=== PATIENT | male | born 1955 | race Caucasian/White ===

== ENCOUNTER → 2018-12-28 | Outpatient (CLI) | payer SELFPAY ==
--- NOTE | 2018-12-28 12:37 | XR ---
EXAMINATION TYPE: XR shoulder complete RT DATE OF EXAM: 12/28/2018 COMPARISON: NONE HISTORY: Pain TECHNIQUE: Three views are submitted. FINDINGS: The osseous structures are intact. There is no acute fracture or dislocation. The AC joint is maint ained. Postsurgical change involving the right shoulder. IMPRESSION: 1. No acute process.
== END ==
LOC: RADXRMAIN 12:14
PROVIDERS: ATTEND Physician Assistant
DX: M25.511 Pain in right shoulder (principal)

== ENCOUNTER 2020-10-24 16:51 | Emergency (ER) | payer OTHER ==
--- NOTE | 2020-10-24 18:42 | XR ---
EXAMINATION TYPE: XR chest 2V DATE OF EXAM: 10/24/2020 COMPARISON: NONE HISTORY: Cough TECHNIQUE: 2 views FINDINGS: Heart and mediastinum are normal. There is some patchy airspace infiltrate in the right mid lung field. Left lung is clear. There is no pleural effusion. There are no hilar masses. IMPRESSION: There is some right side pneumonia which appears new compared to old exam. Normal heart.
--- NOTE | 2020-10-24 20:30 | ED ---
Fever HPI - General Chief Complaint: Fever Stated Complaint: weak/cough/nausea/vomiting/fever Time Seen by Provider: 10/24/20 20:03 Source: patient, RN notes reviewed Mode of arrival: ambulatory Limitations: no limitations - History of Present Illness Initial Comments: 65-year-old white male patient, alert and oriented 4, presents to the emergency room after receiving a positive Covid test on October 20, patient states symptoms started on October 18 where he had sick contacts with the basketball team. Patient complains of cough, congestion, chills, nausea and vomiting and a decreased appetite. Patient denies diarrhea. Patient denies any other medical history. Has surgical history of appendectomy. Patient has no known ALLERGIES. Oxygen saturation 97% on room air, temperature 100.3. MD Complaint: fever, weakness -: days(s) (6) Temperature Source: oral Context: sick contacts (basketball team) Associated Symptoms: chills, cough, shortness of breath, nausea, vomiting, night sweats (decreased appetite) Treatments Prior to Arrival: none - Related Data Previous Rx's Medication Instructions Recorded Azithromycin [Zithromax Z-pack (6 250 mg PO DIRECTED 4 Days #4 tab 10/24/20 tabs)] Allergies Allergy/AdvReac Type Severity Reaction Status Date / Time No Known Allergies Allergy Verified 10/24/20 18:04 Review of Systems ROS Statement: Those systems with pertinent positive or pertinent negative responses have been documented in the HPI. ROS Other: All systems not noted in ROS Statement are negative. Past Medical History Additional Past Medical History / Comment(s): covid 10/14 History of Any Multi-Drug Resistant Organisms: None Reported Past Surgical History: Appendectomy, Orthopedic Surgery Additional Past Surgical History / Comment(s): jamin shoulder,rt knee Past Psychological History: No Psychological Hx Reported Smoking Status: Never smoker Past Alcohol Use History: Rare Past Drug Use History: None Reported General Exam Limitations: no limitations General appearance: alert, in no apparent distress Head exam: Present: atraumatic, normocephalic, normal inspection Eye exam: Present: normal appearance, PERRL, EOMI. Absent: scleral icterus, conjunctival injection, periorbital swelling ENT exam: Present: normal exam, mucous membranes moist Neck exam: Present: normal inspection. Absent: tenderness, meningismus, lymphadenopathy Respiratory exam: Present: normal lung sounds bilaterally. Absent: respiratory distress, wheezes, rales, rhonchi, stridor, chest wall tenderness, decreased breath sounds Cardiovascular Exam: Present: regular rate, normal rhythm, normal heart sounds. Absent: systolic murmur, diastolic murmur, rubs, gallop, clicks GI/Abdominal exam: Present: soft, normal bowel sounds. Absent: distended, tenderness, guarding, rebound, rigid Extremities exam: Present: normal inspection, full ROM, normal capillary refill. Absent: tenderness, pedal edema, joint swelling, calf tenderness Back exam: Present: normal inspection Neurological exam: Present: alert, oriented X3, CN II-XII intact Psychiatric exam: Present: normal affect, normal mood Skin exam: Present: warm, dry, intact, normal color. Absent: rash Course Vital Signs 10/24/20 18:00 Temperature 100.3 F H Pulse Rate 69 Respiratory 22 Rate Blood Pressure 124/80 O2 Sat by Pulse 97 Oximetry Medical Decision Making - Medical Decision Making Temperature 100.3, oxygen level 97% on room air, patient's symptoms started 6 days ago, chest x-ray shows right middle lobe pneumonia. Patient does not meet criteria for monoclonal antibodies. Will discharge patient home on a Z-Wale instructions to return if worsening symptoms or unable to keep fluids down. Case discussed with Dr. Chavez who is in agreement with this plan Disposition Clinical Impression: Pneumonia Disposition: HOME SELF-CARE Condition: Fair Instructions (If sedation given, give patient instructions): Viral Pneumonia (ED), Bacterial Pneumonia (ED) Additional Instructions: Take medication as prescribed, increase fluid intake, Tylenol or Motrin for fevers. Follow-up with the primary care doctor in 1 week. Come back to the emergency room if unable to keep fluids down or worsening shortness of breath or chest pain. Prescriptions: Azithromycin [Zithromax Z-pack (6 tabs)] 250 mg PO DIRECTED 4 Days #4 tab Is patient prescribed a controlled substance at d/c from ED?: No Referrals: Kam Smith DO [Primary Care Provider] - 1-2 days Time of Disposition: 20:43
[2020-10-24] MEDS ORDERED: METOCLOPRAMIDE 5 MG/ML 2 ML VIAL IM STA (20:37)
[2020-10-24] MEDS ORDERED: AZITHROMYCIN 250 MG TAB PO STA (20:37)
[2020-10-24 21:57] VITALS: BP 134/76; PULSE 20; RESP 87; TEMP 98.7
== END 2020-10-24 21:54 | disposition home or self-care (01) ==
LOC: EC 16:51
DX: U07.1 COVID-19 (principal); J12.82 Pneumonia due to coronavirus disease 2019
CPT/HCPCS: 71046; 93005; 96372; 99284

== ENCOUNTER → 2023-06-04 | Outpatient (CLI) | payer MEDICARE, BC ==
[2023-06-04 12:43] LABS: Prothrombin Time 10.9 sec (10.0-12.5)
== END | disposition home or self-care (01) ==
LOC: LABWHC1 11:12
PROVIDERS: ATTEND Internal Medicine Cardiovascular Disease
DX: I48.91 Unspecified atrial fibrillation (principal)
CPT/HCPCS: 36415; 85610

== ENCOUNTER → 2023-06-29 | Outpatient (CLI) | payer MEDICARE, BC ==
[2023-06-29 15:11] LABS: INR 2.5 (<1.2); Prothrombin Time 24.3 sec (10.0-12.5)
== END | disposition home or self-care (01) ==
LOC: LABWHC1 13:07
PROVIDERS: ATTEND Internal Medicine Cardiovascular Disease
DX: I48.91 Unspecified atrial fibrillation (principal)
CPT/HCPCS: 36415; 85610

== ENCOUNTER → 2023-07-15 | Outpatient (CLI) | payer MEDICARE, BC ==
[2023-07-15 13:49] LABS: INR 3.6 (<1.2); Prothrombin Time 35.7 sec (10.0-12.5)
== END | disposition home or self-care (01) ==
LOC: LABWHC1 13:10
PROVIDERS: ATTEND Internal Medicine Cardiovascular Disease
DX: I48.91 Unspecified atrial fibrillation (principal)
CPT/HCPCS: 36415; 85610

== ENCOUNTER 2024-01-16 16:28 | Emergency (ER) | payer MEDICARE, BC ==
--- NOTE | 2024-01-16 16:41 | ED ---
General Adult HPI - General Stated complaint: dizziness Time Seen by Provider: 01/16/24 16:35 Source: RN notes reviewed - History of Present Illness Initial comments: 69-year-old male presenting to the ED with a chief complaint of dizziness. Per patient family and family, was at the pool when he sneezed. Shortly after sneezing started to experience nausea vomiting and dizziness which is described as the room spinning. No chest pain or shortness of breath. Family, at onset no slurring of words. No confusion. Has been acting his normal self. No fever or chills. No other complaints at this time. - Related Data Previous Rx's Medication Instructions Recorded Meclizine [Antivert] 25 mg PO TID PRN #15 tab 01/16/24 Ondansetron Odt [Zofran Odt] 4 mg PO Q8HR PRN #10 tab 01/16/24 Allergies Allergy/AdvReac Type Severity Reaction Status Date / Time No Known Allergies Allergy Verified 01/16/24 16:42 Review of Systems ROS Statement: Those systems with pertinent positive or pertinent negative responses have been documented in the HPI. ROS Other: All systems not noted in ROS Statement are negative. Past Medical History Past Medical History: Atrial Fibrillation Additional Past Medical History / Comment(s): covid 10/14. CARPAL TUNNEL, LT TRIGGER FINGER RING FINGER. HX AFIB-TO HAVE ABLATION 06/01/23-DR. KIRAN AWARE History of Any Multi-Drug Resistant Organisms: None Reported Past Surgical History: Appendectomy, Orthopedic Surgery Additional Past Surgical History / Comment(s): jamin shoulder, rt knee, Past Anesthesia/Blood Transfusion Reactions: No Reported Reaction Smoking Status: Never smoker - Past Family History Mother Family Medical History: No Reported History General Exam - General Exam Comments Initial Comments: Visual Physical Exam Vital signs reviewed General: Well-appearing, nontoxic, no acute distress. Head: Normocephalic, atraumatic Eyes: PERRLA, EOMI ENT: Airway patent Chest: Nonlabored breathing Skin: No visual rash, normal skin tone Neuro: Alert and oriented 3 Musculoskeletal: No gross abnormalities General appearance: alert, in no apparent distress Eye exam: Present: normal appearance, PERRL, EOMI, other (Right beating nystagmus, no torsional nystagmus on cover/uncover. Corrective saccade on head impulse testing.) Neck exam: Present: normal inspection Respiratory exam: Present: normal lung sounds bilaterally Cardiovascular Exam: Present: regular rate GI/Abdominal exam: Present: soft, normal bowel sounds. Absent: distended, tenderness, guarding, rebound, rigid Extremities exam: Present: other (Strength and sensation equal intact bilateral upper lower extremities.) Neurological exam: Present: alert, oriented X3, CN II-XII intact ([id number], [id number], rapid alternating hand movements intact.) Skin exam: Present: warm, dry Course Vital Signs 01/16/24 16:35 Pulse Rate 65 Respiratory 18 Rate Blood Pressure 181/93 O2 Sat by Pulse 93 L Oximetry Medical Decision Making - Medical Decision Making Was pt. sent in by a medical professional or institution (, PA, FARM OPERATOR, urgent care, hospital, or intermediate...) When possible be specific @ -No Did you speak to anyone other than the patient for history (EMS, parent, family, police, friend...)? What history was obtained from this source @ -No Did you review nursing and triage notes (agree or disagree)? Why? @ -I reviewed and agree with nursing and triage notes Were old charts reviewed (outside hosp., previous admission, EMS record, old EKG, old radiological studies, urgent care reports/EKG's, intermediate records)? Report findings @ -No old charts were reviewed Differential Diagnosis (chest pain, altered mental status, abdominal pain women, abdominal pain men, vaginal bleeding, weakness, fever, dyspnea, syncope, headache, dizziness, GI bleed, back pain, seizure, CVA, palpatations, mental health, musculoskeletal)? @ -Differential Dizziness: Benign paroxysmal positional Vertigo, Menieres disease, otitis media, acoustic neuroma, vertebrobasilar insufficiency, cerebellar stroke, encephalitis, hypovolemic, arrhythmia, coronary artery syndrome, anemia, this is not meant to be an all-inclusive list EKG interpreted by me (3pts min.). @ -EKG interpreted me showing a sinus bradycardia at [address] or T wave changes. IA 161, QRS 129, QT/QTc 406/491. X-rays interpreted by me (1pt min.). @ -None done CT interpreted by me (1pt min.). @ -None done U/S interpreted by me (1pt. min.). @ -None done What testing was considered but not performed or refused? (CT, X-rays, U/S, labs)? Why? @ -Imaging of the brain was considered however at this time neurologic exam benign with peripheral findings. Additionally had significant improvement of symptoms following meclizine and Zofran. What meds were considered but not given or refused? Why? @ -None Did you discuss the management of the patient with other professionals (professionals i.e. DrAshwin, PA, FARM OPERATOR, lab, RT, psych nurse, social service director, fur nailer, teacher, command and control officer, case management director)? Give summary @ -No Was smoking cessation discussed for >3mins.? @ -No Was critical care preformed (if so, how long)? @ -No Were there social determinants of health that impacted care today? How? (Homelessness, low income, unemployed, alcoholism, drug addiction, transportation, low edu. Level, literacy, decrease access to med. care, long-term, rehab)? @ -No Was there de-escalation of care discussed even if they declined (Discuss DNR or withdrawal of care, Hospice)? DNR status @ -No What co-morbidities impacted this encounter? (DM, HTN, Smoking, COPD, CAD, Can cer, CVA, ARF, Chemo, Hep., AIDS, mental health diagnosis, sleep apnea, morbid obesity)? @ -None Was patient admitted / discharged? Hospital course, mention meds given and route, prescriptions, significant lab abnormalities, going to OR and other pertinent info. @ -Discharge 69-year-old male presenting to the ED with complaints of dizziness and nausea vomiting after sneezing. On exam, HINTs exam consistent with peripheral findings of vertigo. Laboratory studies reviewed. Labs including CBC CMP UA largely unremarkable. Patient provided meclizine and Antivert here with signif icant improvement of symptoms and at this time patient reports he would like to go home and would not like to have any additional testing. Discharged home in stable condition with prescription for meclizine and Zofran with referral to see ENT. Discussed tricked return precautions with patient and family who verbalized agreement. Undiagnosed new problem with uncertain prognosis? @ -No Drug Therapy requiring intensive monitoring for toxicity (Heparin, Nitro, Insulin, Cardizem)? @ -No Were any procedures done? @ -No Diagnosis/symptom? @ -Vertigo Acute, or Chronic, or Acute on Chronic? @ -Acute Uncomplicated (without systemic symptoms) or Complicated (systemic symptoms)? @ -Uncomplicated Side effects of treatment? @ -No Exacerbation, Progression, or Severe Exacerbation? @ -No Poses a threat to life or bodily function? How? (Chest pain, [place], [place], pneumonia, PE, COPD, DKA, ARF, appy, cholecystitis, CVA, Diverticulitis, Homicidal, Suicidal, threat to staff... and all critical care pts) @ -No - Lab Data Result diagrams: 01/16/24 16:42 01/16/24 16:42 Lab Results 01/16/24 01/16/24 01/16/24 Range/Units 16:42 16:42 16:42 WBC 8.7 (3.8-10.6) k/uL RBC 4.80 (4.30-5.90) m/uL Hgb 13.9 (13.0-17.5) gm/dL Hct 42.3 (39.0-53.0) % MCV 88.2 (80.0-100.0) fL MCH 29.0 (25.0-35.0) pg MCHC 32.9 (31.0-37.0) g/dL RDW 13.9 (11.5-15.5) % Plt Count 210 (150-450) k/uL MPV 9.2 Neutrophils % 47 % Lymphocytes % 38 % Monocytes % 8 % Eosinophils % 2 % Basophils % 1 % Neutrophils # 4.1 (1.3-7.7) k/uL Lymphocytes # 3.3 (1.0-4.8) k/uL Monocytes # 0.7 (0-1.0) k/uL Eosinophils # 0.2 (0-0.7) k/uL Basophils # 0.0 (0-0.2) k/uL Sodium 141 (137-145) mmol/L Potassium 4.0 (3.5-5.1) mmol/L Chloride 111 H (98-107) mmol/L Carbon Dioxide 20 L (22-30) mmol/L Anion Gap 10 mmol/L BUN 19 (9-20) mg/dL Creatinine 1.27 H (0.66-1.25) mg/dL Est GFR (CKD-EPI)AfAm 67 (>60 ml/min/1.73 sqM) Est GFR (CKD-EPI)NonAf 58 (>60 ml/min/1.73 sqM) Glucose 135 H (74-99) mg/dL Calcium 9.6 (8.4-10.2) mg/dL Total Bilirubin 0.4 (0.2-1.3) mg/dL AST 40 (17-59) U/L ALT 46 (4-49) U/L Alkaline Phosphatase 91 (38-126) U/L Total Protein 7.8 (6.3-8.2) g/dL Albumin 4.9 (3.5-5.0) g/dL Urine Color Light Yellow Urine Appearance Clear (Clear) Urine pH 5.0 (5.0-8.0) Ur Specific Lyle 1.019 (1.001-1.035) Urine Protein Negative (Negative) Urine Glucose (UA) Negative (Negative) Urine Ketones Negative (Negative) Urine Blood Small H (Negative) Urine Nitrite Negative (Negative) Urine Bilirubin Negative (Negative) Urine Urobilinogen <2.0 (<2.0) mg/dL Ur Leukocyte Esterase Negative (Negative) Urine RBC 1 (0-5) /hpf Urine WBC <1 (0-5) /hpf Disposition Clinical Impression: Vertigo Disposition: HOME SELF-CARE Condition: Good Instructions (If sedation given, give patient instructions): Vertigo (ED) Additional Instructions: Please return to the Emergency Department if symptoms worsen or any other concerns. Please follow-up with ENT and your primary care provider. Prescriptions: Meclizine [Antivert] 25 mg PO TID PRN #15 tab PRN Reason: Vertigo Ondansetron Odt [Zofran Odt] 4 mg PO Q8HR PRN #10 tab PRN Reason: Nausea Is patient prescribed a controlled substance at d/c from ED?: No Referrals: Kam Smith DO [Primary Care Provider] - 1-2 days Venkat Kimball DO [Doctor of Osteopathic Medicine] - 1-2 days Time of Disposition: 19:45
[2024-01-16 16:42] VITALS: RESP 18
[2024-01-16] MEDS: ONDANSETRON 4 MG/2 ML VIAL IVP STA (16:44)
[2024-01-16] MEDS: MECLIZINE 12.5 MG TAB PO STA (16:45)
[2024-01-16 17:24] LABS: Basophils % (A) 1 %; Eosinophils # (A) 0.2 k/uL (0-0.7); Eosinophils % (A) 2 %; HCT 42.3 % (39.0-53.0); HGB 13.9 gm/dL (13.0-17.5); Lymphocytes # (A) 3.3 k/uL (1.0-4.8); Lymphocytes % (A) 38 %; MCHC 32.9 g/dL (31.0-37.0); MCV 88.2 fL (80.0-100.0); Mean Platelet Volume 9.2; Monocytes # (A) 0.7 k/uL (0-1.0); Monocytes % (A) 8 %; Neutrophils # (A) 4.1 k/uL (1.3-7.7); Neutrophils % (A) 47 %; Platelet Count 210 k/uL (150-450); RDW 13.9 % (11.5-15.5); WBC 8.7 k/uL (3.8-10.6)
[2024-01-16 17:41] LABS: ALT 46 U/L (4-49); AST 40 U/L (17-59); African American GFR (CKD) 67 (>60 ml/min/1.73 sqM); Albumin 4.9 g/dL (3.5-5.0); Alkaline Phosphatase 91 U/L (38-126); Anion Gap 10 mmol/L; Blood Urea Nitrogen 19 mg/dL (9-20); Calcium 9.6 mg/dL (8.4-10.2); Carbon Dioxide 20 mmol/L (22-30); Chloride 111 mmol/L (98-107); Glucose 135 mg/dL (74-99); Non-African American GFR(CKD) 58 (>60 ml/min/1.73 sqM); Sodium 141 mmol/L (137-145); Total Bilirubin 0.4 mg/dL (0.2-1.3); Total Protein 7.8 g/dL (6.3-8.2)
[2024-01-16 19:08] LABS: Appearance,Urine Clear (Clear); Bilirubin,Urine Negative (Negative); Blood,Urine Small (Negative); Color,Urine Light Yellow; Glucose,Urine (UA) Negative (Negative); Ketones,Urine Negative (Negative); Leukocyte Esterase,Urine Negative (Negative); Nitrite,Urine Negative (Negative); Protein,Urine Negative (Negative); RBC,Urine 1 /hpf (0-5); Specific Gravity,Urine 1.019 (1.001-1.035); Urobilinogen,Urine <2.0 mg/dL (<2.0); WBC,Urine <1 /hpf (0-5)
[2024-01-16] MEDS: ONDANSETRON 4 MG ODT STARTER PACK 2 TAB BTL PO STA (20:22)
[2024-01-16 20:28] VITALS: BP 171/96; PULSE 62
== END 2024-01-16 20:27 | disposition home or self-care (01) ==
LOC: EC 16:28
DX: R42 Dizziness and giddiness (principal); Z86.16 Personal history of COVID-19
CPT/HCPCS: 36415; 93005; 80053; 85025; 81001; 99284; 96374; J2405; S0119

== ENCOUNTER → 2024-01-22 | Outpatient (CLI) | payer MEDICARE, BC ==
[2024-01-22 21:35] LABS: INR 1.95 sec (0.93-1.11); Prothrombin Time 20.2 sec (9.9-11.9)
== END | disposition home or self-care (01) ==
LOC: LABWHC1 10:38
PROVIDERS: ATTEND Internal Medicine Cardiovascular Disease
DX: I48.91 Unspecified atrial fibrillation (principal)
CPT/HCPCS: 36415; 85610

== ENCOUNTER → 2024-07-12 | Outpatient (CLI) | payer MEDICARE, BC ==
[2024-07-12 20:17] LABS: INR 1.11 sec (0.93-1.11); Prothrombin Time 12.3 sec (9.9-11.9)
== END | disposition home or self-care (01) ==
LOC: LABWHC1 14:08
PROVIDERS: ATTEND Internal Medicine
DX: I48.91 Unspecified atrial fibrillation (principal)
CPT/HCPCS: 36415; 85610

== ENCOUNTER 2024-07-25 12:27 | Emergency (ER) | payer MEDICARE, BC ==
--- NOTE | 2024-07-25 13:05 | ED ---
Extremity Problem HPI - General Source: patient, RN notes reviewed Mode of arrival: ambulatory Limitations: no limitations <Tricia Smith - Last Filed: 07/25/24 13:03> <Sammy Porras - Last Filed: 07/25/24 20:58> - General Chief complaint: Extremity Problem,Nontraumatic Stated complaint: Left foot pain Time Seen by Provider: 07/25/24 13:03 - History of Present Illness Initial comments: Quick [id number] male presenting with left ankle pain x 1 day. States he woke up this morning and noticed his ankle was painful and red. States that is very painful to the touch. States he has a PA family member who told him it may be gout. Or injury. No history of gout. (Tricia Smith) 69-year-old male presenting with chief complaint of left ankle pain. Pain started yesterday. Started off over a small portion of the ankle but now encompasses the majority of the ankle. He denies any injury or trauma. There is some very mild reddening to the area, this is not castillo red. It is very painful to the touch. He does have some swelling as well. He was told by a family member that it may be gout, he has no history of gout. No numbness tingling or weakness. He took some Motrin at home which somewhat helped the pain. No recent surgery. States that [address] from [place]. No history of blood clots. He is on warfarin for A-fib. No fever nausea or vomiting. No chest pain or difficulty breathing. (Sammy Porras) - Related Data Previous Rx's Medication Instructions Recorded Meclizine [Antivert] 25 mg PO TID PRN #15 tab 01/16/24 Ondansetron Odt [Zofran Odt] 4 mg PO Q8HR PRN #10 tab 01/16/24 methylPREDNISolone Dose Pack 4 mg PO DIRECTED #1 packet 07/25/24 [Medrol Dose Pack] Allergies Allergy/AdvReac Type Severity Reaction Status Date / Time No Known Allergies Allergy Verified 07/25/24 12:42 Review of Systems ROS Other: All systems not noted in ROS Statement are negative. <Tricia Smith - Last Filed: 07/25/24 13:03> ROS Other: All systems not noted in ROS Statement are negative. <Sammy Porras - Last Filed: 07/25/24 20:58> ROS Statement: Those systems with pertinent positive or pertinent negative responses have been documented in the HPI. Past Medical History Past Medical History: Atrial Fibrillation Additional Past Medical History / Comment(s): covid 10/14. CARPAL TUNNEL, LT TRIGGER FINGER RING FINGER. HX AFIB-TO HAVE ABLATION 06/01/23-DR. KIRAN AWARE History of Any Multi-Drug Resistant Organisms: None Reported Past Surgical History: Appendectomy, Orthopedic Surgery Additional Past Surgical History / Comment(s): jamin shoulder, rt knee, Past Anesthesia/Blood Transfusion Reactions: No Reported Reaction Past Psychological History: No Psychological Hx Reported Smoking Status: Never smoker - Past Family History Mother Family Medical History: No Reported History <Tricia Smith - Last Filed: 07/25/24 13:03> General Exam Limitations: no limitations <Tricia Smith - Last Filed: 07/25/24 13:03> General appearance: alert, in no apparent distress Head exam: Present: atraumatic, normocephalic, normal inspection Eye exam: Present: normal appearance, EOMI Neck exam: Present: normal inspection. Absent: meningismus Respiratory exam: Absent: respiratory distress Cardiovascular Exam: Present: regular rate Left Ankle exam: Present: full ROM, tenderness, swelling Neurological exam: Present: alert, oriented X3 Psychiatric exam: Present: normal affect, normal mood Skin exam: Present: warm, dry <Sammy Porras - Last Filed: 07/25/24 20:58> - General Exam Comments Initial Comments: Visual Physical Exam Vital signs reviewed General: Well-appearing, nontoxic, no acute distress. Head: Normocephalic, atraumatic Eyes: PERRLA, EOMI ENT: Airway patent Chest: Nonlabored breathing Skin: No visual rash, normal skin tone Neuro: Alert and oriented 3 Musculoskeletal: No gross abnormalities (Tricia Smith) Course Vital Signs 07/25/24 07/25/24 12:41 16:52 Temperature 98.2 F 97.9 F Pulse Rate 72 68 Respiratory 18 20 Rate Blood Pressure 153/88 149/86 O2 Sat by Pulse 97 97 Oximetry Medical Decision Making <Tricia Smith - Last Filed: 07/25/24 13:03> - Lab Data Result diagrams: 07/25/24 14:07 12/30/24 14:07 <Sammy Porras - Last Filed: 07/25/24 20:58> - Medical Decision Making I completed the quick note portion of this chart signed Tricia Smith PA-C (Tricia Smith) Was pt. sent in by a medical professional or institution ([facility], ELE[employer] SCHOOL TE[employer]ER'S AIDE, urgent care, hospital, or care home...) When possible be specific @ -[No] Did you speak to anyone other than the patient for history (EMS, parent, family, police, friend...)? What history was obtained from this source @ -[No] Did you review nursing and triage notes (agree or disagree)? Why? @ -[I reviewed and agree with nursing and triage notes] Were old charts reviewed (outside hosp., previous admission, EMS record, old EKG, old radiological studies, urgent care reports/EKG's, care home records)? Report findings @ -[No old charts were reviewed] Differential Diagnosis (chest pain, altered mental status, abdominal pain women, abdominal pain men, vaginal bleeding, weakness, fever, dyspnea, syncope, headache, dizziness, GI bleed, back pain, seizure, CVA, palpatations, mental health, musculoskeletal)? @ -Differential Musculoskeletal Muscular strain, contusion, ligament sprain, fracture, arthritis, septic arthritis, bursitis, cellulitis, muscle spasm, nerve compression, DVT, arterial occlusion, herpes zoster, electrolyte abnormality, tumor.... This is not meant to be in all inclusive list EKG interpreted by me (3pts min.). @ -[As above] X-rays interpreted by me (1pt min.). @ -X-ray shows lateral soft tissue swelling and underlying tibiotalar joint effusion. No acute osseous abnormality seen CT interpreted by me (1pt min.). @ -[None done] U/S interpreted by me (1pt. min.). @ -Ultrasound shows no evidence of DVT What testing was considered but not performed or refused? (CT, X-rays, U/S, labs)? Why? @ -[None] What meds were considered but not given or refused? Why? @ -[None] Did you discuss the management of the patient with other professionals (professionals i.e. , [facility], ELEMENT[employer] SCHOOL TEACHER'S AIDE, lab, RT, psych nurse, social insurance specialist, card fixer, teacher, facilities officer, disability case manager)? Give summary @ -[No] Was smoking cessation discussed for >3mins.? @ -[No] Was critical care preformed (if so, how long)? @ -[No] Were there social determinants of health that impacted care today? How? (Homelessness, low income, unemployed, alcoholism, drug addiction, transportation, low edu. Level, literacy, decrease access to med. care, penitentiary, rehab)? @ -[No] Was there de-escalation of care discussed even if they declined (Discuss DNR or withdrawal of care, Hospice)? DNR status @ -[No] What co-morbidities impacted this encounter? (DM, HTN, Smoking, COPD, CAD, Cancer, CVA, ARF, Chemo, Hep., AIDS, mental health diagnosis, sleep apnea, morbid obesity)? @ -[None] Was patient admitted / discharged? Hospital course, mention meds given and route, prescriptions, significant lab abnormalities, going to OR and other pertinent info. @ -69-year-old male presenting with chief complaint of left ankle pain. No injury. Workup is initiated by triage. No leukocytosis or anemia. Uric acid is 5.3. Ankle x-ray shows no acute osseous process, there is some soft tissue swelling. Patient is later examined by myself. He does have swelling to the ankle and distal portion of the lower leg. This is very mildly red, this is not a castillo red. There is no excessive warmth. He is neurovascularly intact. Undiagnosed new problem with uncertain prognosis? @ -[No] Drug Therapy requiring intensive monitoring for toxicity (Heparin, Nitro, Insulin, Cardizem)? @ -[No] Were any procedures done? @ -[No] Diagnosis/symptom? @ -[default] Acute, or Chronic, or Acute on Chronic? @ -[default] Uncomplicated (without systemic symptoms) or Complicated (systemic symptoms)? @ -[default] Side effects of treatment? @ -[No] Exacerbation, Progression, or Severe Exacerbation? @ -[No] Poses a threat to life or bodily function? How? (Chest pain, [place], [place], pneumonia, PE, COPD, DKA, ARF, appy, cholecystitis, CVA, Diverticulitis, Homicidal, Suicidal, threat to staff... and all critical care pts) @ -[No] (PorrasSammy) - Lab Data Lab Results 07/25/24 07/25/24 Range/Units 14:07 14:07 WBC 5.7 (3.8-10.6) k/uL RBC 4.87 (4.30-5.90) m/uL Hgb 14.2 (13.0-17.5) gm/dL Hct 41.4 (39.0-53.0) % MCV 85.0 (80.0-100.0) fL MCH 29.2 (25.0-35.0) pg MCHC 34.4 (31.0-37.0) g/dL RDW 13.3 (11.5-15.5) % Plt Count 144 L (150-450) k/uL MPV 8.3 Neutrophils % 49 % Lymphocytes % 37 % Monocytes % 9 % Eosinophils % 2 % Basophils % 0 % Neutrophils # 2.8 (1.3-7.7) k/uL Lymphocytes # 2.1 (1.0-4.8) k/uL Monocytes # 0.5 (0-1.0) k/uL Eosinophils # 0.1 (0-0.7) k/uL Basophils # 0.0 (0-0.2) k/uL Sodium 139 (137-145) mmol/L Potassium 4.8 (3.5-5.1) mmol/L Chloride 104 (98-107) mmol/L Carbon Dioxide 25 (22-30) mmol/L Anion Gap 10 mmol/L BUN 16 (9-20) mg/dL Creatinine 1.16 (0.66-1.25) mg/dL Est GFR (CKD-EPI)AfAm 76 (>60 ml/min/1.73 sqM) Est GFR (CKD-EPI)NonAf 65 (>60 ml/min/1.73 sqM) Glucose 95 (74-99) mg/dL Uric Acid 5.3 (3.5-8.5) mg/dL Calcium 9.5 (8.4-10.2) mg/dL Total Bilirubin 0.5 (0.2-1.3) mg/dL AST 39 (17-59) U/L ALT 55 H (4-49) U/L Alkaline Phosphatase 81 (38-126) U/L Total Protein 7.9 (6.3-8.2) g/dL Albumin 5.0 (3.5-5.0) g/dL Disposition <Tricia Smith - Last Filed: 07/25/24 13:03> Is patient prescribed a controlled substance at d/c from ED?: No Time of Disposition: 16:37 <Sammy Porras - Last Filed: 07/25/24 20:58> Clinical Impression: Gout Disposition: HOME SELF-CARE Condition: Good Instructions (If sedation given, give patient instructions): Low Purine Diet (ED), Gout (ED) Additional Instructions: Follow-up with your PCP. Report back to ER with any new or worsening symptoms. Take Motrin and Tylenol as needed for pain control. Prescriptions: methylPREDNISolone Dose Pack [Medrol Dose Pack] 4 mg PO DIRECTED #1 packet Referrals: Kam Smith DO [Primary Care Provider] - 1-2 days
[2024-07-25 14:13] LABS: Basophils % (A) 0 %; Eosinophils # (A) 0.1 k/uL (0-0.7); Eosinophils % (A) 2 %; HCT 41.4 % (39.0-53.0); HGB 14.2 gm/dL (13.0-17.5); Lymphocytes # (A) 2.1 k/uL (1.0-4.8); Lymphocytes % (A) 37 %; MCH 29.2 pg (25.0-35.0); MCHC 34.4 g/dL (31.0-37.0); Mean Platelet Volume 8.3; Monocytes # (A) 0.5 k/uL (0-1.0); Monocytes % (A) 9 %; Neutrophils # (A) 2.8 k/uL (1.3-7.7); Neutrophils % (A) 49 %; Platelet Count 144 k/uL (150-450); RBC 4.87 m/uL (4.30-5.90); RDW 13.3 % (11.5-15.5); WBC 5.7 k/uL (3.8-10.6)
[2024-07-25 14:29] LABS: ALT 55 U/L (4-49); AST 39 U/L (17-59); African American GFR (CKD) 76 (>60 ml/min/1.73 sqM); Alkaline Phosphatase 81 U/L (38-126); Anion Gap 10 mmol/L; Blood Urea Nitrogen 16 mg/dL (9-20); Calcium 9.5 mg/dL (8.4-10.2); Carbon Dioxide 25 mmol/L (22-30); Chloride 104 mmol/L (98-107); Glucose 95 mg/dL (74-99); Non-African American GFR(CKD) 65 (>60 ml/min/1.73 sqM); Potassium 4.8 mmol/L (3.5-5.1); Sodium 139 mmol/L (137-145); Total Bilirubin 0.5 mg/dL (0.2-1.3); Total Protein 7.9 g/dL (6.3-8.2); Uric Acid 5.3 mg/dL (3.5-8.5)
[2024-07-25] MEDS: KETOROLAC 15 MG/ML 1 ML VIAL IM STA (15:32)
--- NOTE | 2024-07-25 15:44 | XR ---
EXAMINATION TYPE: XR ankle complete 3 views LT DATE OF EXAM: 07/25/2024 3:14 PM COMPARISON: None CLINICAL INDICATION: Male, 69 years old with history of left ankle pain, , FINDINGS: Lateral soft tissue swelling. Underlying tibiotalar joint effusion. Scattered vascular calcifications . Ankle mortise is congruent with preservation of the distal tibia-fibula overlap. Talar dome is inta ct. Small corticated density measuring 4 mm below the medial malleolus compatible with sequela of inj ury. No acute fracture, subluxation, or dislocation. Smooth delineation to the Achilles tendon. Subta lar joint is aligned. IMPRESSION: Lateral soft tissue swelling and underlying tibiotalar joint effusion. No acute osseous abnormality s een. [facility], , 07/25/2024 3:42 PM
--- NOTE | 2024-07-25 16:19 | US ---
EXAMINATION TYPE: US venous doppler duplex LE LT DATE OF EXAM: 07/25/2024 3:59 PM COMPARISON: NONE CLINICAL INDICATION: Male, 69 years old with history of L foot/leg swelling; Left foot pain and swell ing x 1 day, no h/o dvt, TECHNIQUE: The lower extremity deep venous system is examined utilizing real time linear array sonog glenna with graded compression, color doppler sonography, and spectral doppler. SIDE PERFORMED: Left FINDINGS: VESSELS IMAGED: Common Femoral Vein Deep Femoral Vein Greater Saphenous Vein * Femoral Vein Popliteal Vein Small Saphenous Vein * Proximal Calf Veins (* superficial vessels) The deep venous system of the left lower extremity from the common femoral vein to the proximal calf veins is patent and compressible with augmentable flow with normal waveforms. IMPRESSION: No evidence of left lower extremity DVT from the common femoral vein to the proximal calf veins [facility], Workstation: [id number] 07/25/2024 4:17 PM
[2024-07-25] MEDS: methylPREDNISolone SOD SUCCI 125 MG/2 ML VIAL IM ONE (16:48)
[2024-07-25 16:54] VITALS: BP 149/86; PULSE 68; RESP 20; TEMP 97.9
[2024-07-25 19:24] LABS: Erythrocyte Sedimentation Rate 36 mm/Hr (0-20)
== END 2024-07-25 16:50 | disposition home or self-care (01) ==
LOC: EC 12:27
DX: M10.9 Gout, unspecified (principal)
CPT/HCPCS: 36415; 80053; 85652; 84550; 85025; 73610; 93971; 99284; 96372 ×2; J1885; J2919

== ENCOUNTER → 2025-01-31 | Outpatient (CLI) | payer MEDICARE, BC ==
[2025-01-31 19:57] LABS: Anion Gap 13.60 mmol/L (4.00-12.00); BUN/Creat Ratio 13.54 Ratio (12.00-20.00); Blood Urea Nitrogen 17.6 mg/dL (9.0-27.0); Calcium 9.6 mg/dL (8.7-10.3); Carbon Dioxide 22.4 mmol/L (21.6-31.8); Chloride 102 mmol/L (96-109); Glucose 101 mg/dL (70-110); Potassium 4.3 mmol/L (3.5-5.5); Sodium 138 mmol/L (135-145); Triglycerides 187.00 mg/dL (0.00-149.00)
[2025-01-31 19:59] LABS: Basophils # (A) 0.03 X 10*3/uL (0.00-0.10); Basophils % (A) 0.5 %; Eosinophils # (A) 0.13 X 10*3/uL (0.04-0.35); Eosinophils % (A) 2.2 %; HCT 42.3 % (39.6-50.0); HGB 14.2 g/dL (13.0-17.0); Immature Grans, Automated 0.20 %; Lymphocytes # (A) 1.47 X 10*3/uL (0.90-5.00); Lymphocytes % (A) 25.3 %; MCH 29.3 pg (27.0-32.0); MCHC 33.6 g/dL (32.0-37.0); MCV 87.2 FL (80.0-97.0); Monocytes # (A) 0.66 X 10*3/uL (0.20-1.00); Monocytes % (A) 11.3 %; NRBC Per 100 WBC 0 X 10*3/uL (0.00-0.01); Neutrophils # (A) 3.52 X 10*3/uL (1.80-7.70); Neutrophils % (A) 60.5 %; Platelet Count 164 X 10*3/uL (140-440); RBC 4.85 X 10*6/uL (4.40-5.60); RDW 13.2 % (11.5-14.5); WBC 5.82 X 10*3/uL (4.50-10.00)
[2025-01-31 21:31] LABS: INR 2.33 sec (0.93-1.11); Prothrombin Time 24.5 sec (9.9-11.9)
== END | disposition home or self-care (01) ==
LOC: LABWHC1 12:52
PROVIDERS: ATTEND Internal Medicine
DX: I25.10 Atherosclerotic heart disease of native coronary artery without angina pectoris (principal); I48.20 Chronic atrial fibrillation, unspecified; I48.91 Unspecified atrial fibrillation; R06.09 Other forms of dyspnea
CPT/HCPCS: 36415; 80048; 83721; 84478; 85025; 85610